=== PATIENT | female | born 1955 | race Caucasian/White ===

== ENCOUNTER 2024-07-12 08:55 | Emergency (ER) | payer MEDICARE, OTHER ==
[~2024-07-12] VITALS: Ht 165.1 cm; Wt 108.9 kg
[~2024-07-12 08:55] MED LIST: ACET325T53 PO; AMIN30LI7 PO; AMLO10TA4 PO; BISA10SU11 RC; CYAN-51 PO; DEXT15DR6 EACHEYE; ESCI5TAB PO; FAMO-131 PO; FERR325T23 PO; FOLI0.8C PO; LEVO100T PO; MAGN400O6 PO; NA P133E RC; POLY17PO4 PO; SENN-175 PO; THIA100T74 PO
[2024-07-12 11:57] VITALS: BP 122/74; TEMP 97.7; O2SAT 98
== END 2024-07-12 11:57 ==
LOC: ER 08:57
DX: T83.028A Displacement of other urinary catheter, initial encounter (principal); E03.9 Hypothyroidism, unspecified; F32.A Depression, unspecified; I10 Essential (primary) hypertension; I25.2 Old myocardial infarction; K21.9 Gastro-esophageal reflux disease without esophagitis; Z79.899 Other long term (current) drug therapy; Z87.440 Personal history of urinary (tract) infections; Z86.69 Personal history of other diseases of the nervous system and sense organs; Y84.8 Other medical procedures as the cause of abnormal reaction of the patient, or of later complication, without mention of misadventure at the time of the procedure; Y92.89 Other specified places as the place of occurrence of the external cause